=== PATIENT | female | born 1945 | race Caucasian/White ===

== ENCOUNTER → 2019-05-09 | Outpatient (CLI) | payer MEDICARE, OTHER ==
[2018-09-21 11:00] VITALS: BP 121/68
[~2019-05-09] MED LIST: ACET325T9 PO; ASCO10002 PO; ASPI325T11 PO; ATOR40TA59 PO; GARL100T PO; LORA0.5T96 PO; METO25TA4 PO; NAPR220T70 PO; NITR0.4T24 SL; PANA1CAP PO; Pantoprazole PO; RIVA10TA PO; TRAM-48 PO; VITA-8 PO; WARF10TA45 MC
--- NOTE | 2019-05-09 15:54 | RAD ---
MR#: [id number] Date of Study: 05/09/2019 Ordering Physician: JESUS MANUEL SLOER, Referring Physician: JESUS MANUEL SOLER, Tech: ZI Guerrero, RDNM, t APPROVED REPORT Patient Location: OUT-PATIENT Indications Claudication: VELOCITY AND DOPPLER WAVEFORM ANALYSIS RIGHT cm/secWaveformSeverity LEFT cm/secWaveform Severity pCFA 117.1MonophasicpCFA 190.9Monophasic Prof Fem Art. 85.3Prof Fem Art. 82.4 Fem Art Prox. 94.7MonophasicFem Art Prox. 109.2Monophasic Fem Art Mid. 91.6MonophasicFem Art Mid. 247.9Monophasic Fem Art Dist. 151.8MonophasicFem Art Dist. 70.9Monophasic Pop Art(Fossa) 70.5MonophasicPop Art(AK) 96.9Monophasic SUSTAINABLE SYSTEMS ANALYST Dist. 35.2MonophasicPTA Dist. 50.4Monophasic Per Art Dist.Per Art Dist.58.1Monophasic PAZ Dist. 39.3MonophasicATA Dist. 32.4Monophasic DPA 44MonophasicDPA 41Monophasic Findings Grayscale images of the bilateral lower extremity arterial vessels demonstrate mild diffuse intimal h yperplasia. Spectral waveforms and color Doppler on the right side are grossly within normal limits w ith minimally elevated velocities at the level of the distal superficial femoral artery. Overall sugg estive of less than 50% stenosis. Below the knee there are monophasic waveforms in the peroneal arter y appears to be occluded. Diminished flow velocities suggestive of diffuse disease. Grayscale of his of the left are similar and demonstrate moderate diffuse plaque. Elevated velocities at the level of the common femoral artery again suggestive of less than 50% stenosis. There is likel y a 50% or more stenosis involving the distal SFA. No focal high-grade stenosis identified otherwise. Critical Notification Critical Value: No <Conclusion> 1. Moderate diffuse disease bilaterally 2. Probable 50% or greater stenosis involving the mid left SFA. Probable occlusion of the right peron eal artery. Signed by : Jose Sanon, Electronically Approved : 05/09/2019 15:54:07
== END | disposition home or self-care (01) ==
LOC: US 14:19
PROVIDERS: ATTEND Internal Medicine Cardiovascular Disease
DX: I70.292 Other atherosclerosis of native arteries of extremities, left leg (principal)
CPT/HCPCS: 93925

== ENCOUNTER → 2019-05-21 | Outpatient (CLI) | payer MEDICARE ==
[2018-09-21 11:00] VITALS: BP 121/68
--- NOTE | 2019-05-21 11:02 | RAD ---
MR#: [id number] Date of Study: 05/21/2019 Ordering Physician: JESUS MANUEL SOLER, Referring Physician: JESUS MANUEL SOLER, Tech: ZI Guerrero, [facility], t APPROVED REPORT Bilateral Lower Extremity Venous Study for DVT Patient Location: OUT-PATIENT Indications Lower Extremity Pain: Lower Extremity Edema: CAD Findings The bilateral lower extremity deep veins were evaluated for thrombus with color Doppler, spectral and grayscale images. On the right the grayscale images of the common femoral, superficial femoral and popliteal veins do n ot demonstrate any evidence of thrombus and these veins appear to be compressible. The below-knee vei ns were not well visualized . On the left, the grayscale images of the common femoral, superficial femoral and popliteal veins do n ot demonstrate any evidence of thrombus and these veins appear to be compressible. The below-knee vei ns again were not well visualized but grossly appear to be compressible. Spectral imaging and color D oppler do not reveal any evidence of obstruction to flow with normal respirophasic variation above th e knee. The below-knee veins demonstrate spontaneous flow. Significant bilateral lower extremity edema. Critical Notification Critical Value: No <Conclusion> 1. Technically limited study. 2. No clear evidence of the DVT in the LLE. 3. RLE with no evidence of DVT, technically difficult study in the below knee evaluation Signed by : Jose Sanon, Electronically Approved : 05/21/2019 11:01:48
--- NOTE | 2019-05-21 11:07 | RAD ---
MR#: [id number] Date of Study: 05/21/2019 Ordering Physician: JESUS MANUEL SOLER, Referring Physician: JESUS MANUEL SOLER, Tech: ZI Guerrero, RDSD, T APPROVED REPORT Patient Location : OUT-PATIENT Indications Lower Extremity Pain : Lower Extremity Edema : Skin Changes CAD Findings Yee scale images of the bilateral saphenofemoral junctions are grossly unremarkable. The bilateral GSV/LSV are grossly without thrombus. The RGSV measures 6.5 mm and the left GSV measures 6.4 mm and both these veins do not reflux The bilateral lesser saphenous veins do not show any evidence of reflux. Critical Notification Critical Value: No <Conclusion> 1. Negative for reflux in the bilateral greater and lesser saphenous veins. Signed by : Jose Sanon, Electronically Approved : 05/21/2019 11:06:35
== END | disposition home or self-care (01) ==
LOC: US 10:11
PROVIDERS: ATTEND Internal Medicine Cardiovascular Disease
DX: M79.604 Pain in right leg (principal); M79.605 Pain in left leg; R60.0 Localized edema; I25.10 Atherosclerotic heart disease of native coronary artery without angina pectoris
CPT/HCPCS: 93970

== ENCOUNTER → 2020-06-04 | Outpatient (CLI) | payer MEDICARE ==
[2018-09-21 11:00] VITALS: BP 121/68
[~2020-06-04] MED LIST changes: +ASCO100019 PO; -ASCO10002 PO
--- NOTE | 2020-06-04 15:38 | CARD ---
MR#: [id number] Date of Study: 06/04/2020 Ordering Physician: JESUS MANUEL SOLER, Referring Physician: JESUS MANUEL SOLER, Tech: Ursula Valladares [facility] APPROVED REPORT EXAM: Two-dimensional and M-mode echocardiogram with Doppler and color Doppler. Other Information Quality : FairHR: 77bpm Rhythm : NSR INDICATION COPD RISK FACTORS Hypertension Obesity 2D DIMENSIONS RVDd2.8 (2.9-3.5cm)Left Atrium(2D)2.9 (1.6-4.0cm) IVSd1.1 (0.7-1.1cm)Aortic Root(2D)3.1 (2.0-3.7cm) LVDd3.7 (3.9-5.9cm)LVOT Diameter1.8 (1.8-2.4cm) PWd1.1 (0.7-1.1cm)LVDs2.1 (2.5-4.0cm) FS (%) 43.0 %SV43.5 ml LVEF(%)75.0 (>50%) Aortic Valve AoV Peak Manny.134.7cm/sAoV VTI29.2cm AO Peak GR.7.3mmHgLVOT Peak Manny.121.0cm/s AO Mean GR.3mmHgAVA (VMAX)2.40cm2 LEFT VENTRICLE The left ventricle is normal size. There is borderline concentric left ventricular hypertrophy. The l eft ventricular systolic function is normal. Estimated ejection fraction 55-60%. There is normal LV segmental wall motion. RIGHT VENTRICLE The right ventricle is normal size. There is normal right ventricular wall thickness. The right ventr icular systolic function is normal. ATRIA The left atrium size is normal. The right atrium size is normal. The interatrial septum is intact wit h no evidence for an atrial septal defect or patent foramen ovale as noted on 2-D or Doppler imaging. AORTIC VALVE The aortic valve is normal in structure and function. Doppler and Color Flow revealed no significant aortic regurgitation. There is no significant aortic valvular stenosis. MITRAL VALVE The mitral valve is normal in structure and function. There is no evidence of mitral valve prolapse. There is no mitral valve stenosis. Doppler and Color Flow revealed no mitral valve regurgitation note d. TRICUSPID VALVE The tricuspid valve is normal in structure and function. Doppler and Color Flow revealed no tricuspid valve regurgitation noted. There is no tricuspid valve stenosis. PULMONIC VALVE The pulmonary valve is normal in structure and function. Doppler and Color Flow revealed no pulmonic valvular regurgitation. GREAT VESSELS The aortic root is normal in size. The ascending aorta is normal in size. Due to poor image quality, the IVC could not be assessed. PERICARDIAL EFFUSION There is no evidence of significant pericardial effusion. Critical Notification Critical Value: No <Conclusion> The left ventricular systolic function is normal. Estimated ejection fraction 55-60%. There is normal LV segmental wall motion. There is no evidence of significant pericardial effusion. Signed by : Alvaro Ritchie, Electronically Approved : 06/04/2020 15:38:07
== END ==
LOC: ECHO 14:21
PROVIDERS: ATTEND Internal Medicine Cardiovascular Disease
DX: I51.7 Cardiomegaly (principal); I25.10 Atherosclerotic heart disease of native coronary artery without angina pectoris
CPT/HCPCS: 93306

== ENCOUNTER 2020-08-16 11:15 | Emergency (ER) | payer MEDICARE ==
[~2020-08-16] VITALS: Ht 172.7 cm; Wt 108.7 kg
[2020-08-16] MEDS ORDERED: IV NORMAL SALINE 1000ML BAG 1,000 ML IV SCH (11:30)
--- NOTE | 2020-08-16 11:37 | RAD ---
CT Head without contrast Indication: Reason: CODE STROKE<right sided deficit, expressive aphasia ED [phone] / Spl. Instr uctions: / History: Date of service:08/16/2020 11:24 AM. Comparison: CT head without contrast from 04/16/2018. Technique: Contiguous helical images are obtained from foramen magnum, to the vertex without IV contr ast . Findings: The ventricles and sulci are normal for the patient's age. No mass , midline shift , hemor rhage or acute infarct is present. Bone windows are normal without calvarial abnormality. The visual ized orbits, paranasal sinuses and mastoid air cells are clear . Impression: No acute intracranial process detected. PQRS Compliance Statement: One or more of the following individualized dose reduction techniques were utilized for this examinat ion: 1. Automated exposure control 2. Adjustment of the mA and/or kV according to patient size 3. Use of iterative reconstruction technique FOR INTERNAL CODING PURPOSES Critical result: Findings discussed with Anup, the nurse practitioner at 08/16/2020 11:33 AM. RESULT CODE: (C) Electronically signed by: Es Vivar MD (08/16/2020 11:35 AM) [facility]
[2020-08-16] MEDS ORDERED: IOHEXOL 300 MG/ML 100ML VIAL. IV ONE (11:45)
[2020-08-16] MEDS ORDERED: CONTRAST GIVEN. MC PRN (11:45)
[2020-08-16 11:54] LABS: BASO # 0.1 x10^3/uL (0.0-0.2); BASO % 1 % (0-3); EOS # 0.1 x10^3/uL (0.0-0.7); EOS % 1 % (0-3); HEMATOCRIT 35.1 % (36.0-47.0); HEMOGLOBIN 11.5 g/dL (12.0-15.5); LYMPH # 2.2 x10^3/uL (1.0-4.8); LYMPH % 23 % (24-48); MEAN CORPUSCULAR HEMOGLOBIN 26 pg (25-35); MEAN CORPUSCULAR HGB CONC 33 g/dL (31-37); MEAN CORPUSCULAR VOLUME 81 fL (79-100); MONO # 0.6 x10^3/uL (0.0-1.1); MONO % 6 % (0-9); NEUT # 6.7 x10^3/uL (1.8-7.7); NEUT % 70 % (31-73); PLATELET COUNT 195 x10^3/uL (140-400); RED BLOOD COUNT 4.35 x10^6/uL (3.50-5.40); RED CELL DISTRIBUTION WIDTH 17.4 % (11.5-14.5); WHITE BLOOD COUNT 9.6 x10^3/uL (4.0-11.0)
[2020-08-16] MEDS ORDERED: IV NORMAL SALINE 50ML 50 ML IV ONE (12:00)
[2020-08-16] MEDS ORDERED: ALTEPLASE 9 MG IV ONE (12:00)
[2020-08-16] MEDS ORDERED: ALTEPLASE 81 MG IV ONE (12:00)
[2020-08-16 12:04] LABS: PROTHROMBIN TIME PATIENT 13.8 SEC (11.7-14.0)
--- NOTE | 2020-08-16 12:05 | RAD ---
CT arteriogram the carotid arteries, CT arteriogram of the brain. HISTORY: Code stroke, right-sided deficits, expressive aphasia CT arteriogram of the carotid arteries was done using 75 mL Omnipaque 300 contrast. Three-dimensional images were reconstructed. There is respiratory motion artifact throughout the study which limits ev aluation. Upper lung ponce are clear. Thyroid is homogeneous. There is no adenopathy in the neck. Th ere is atherosclerotic change at the aortic arch. Possible narrowing of the origin of the left common carotid artery but the pattern may just be artifact. Left subclavian has mild plaque without severe stenosis. Innominate artery is patent. Origins of the vertebral arteries are poorly seen but there ar e normal size vessels. Both vertebral arteries supply flow to the basilar artery. Common carotid arteries are poorly seen due to motion artifact. There is mild calcified plaque the ri ght carotid bifurcation without definite stenosis but limited evaluation due to motion. There is calc ified plaque at the left carotid bifurcation. There is occlusion at the origin of the left internal c arotid artery. IMPRESSION: 1. Limited study due to motion artifact. 2. Occlusion of the left internal carotid artery. 3. Mild plaque right carotid bifurcation without definite stenosis. End impression CT arteriogram of the brain CT arteriogram of the brain was done following CT arteriogram of the carotid arteries. Basilar artery appears normal. There are prominent posterior communicating arteries bilaterally. Most of the flow t o the posterior cerebral is from the posterior communicating arteries although on the left side there is a good communication with the basilar artery is well. There is reconstitution of the intracranial internal carotid artery probably in part related to the p osterior communicating artery possibly also the ophthalmic artery. Anterior cerebral artery is patent . Difficult to determine if there is an anterior communicating artery. Both anterior cerebral is are patent. There is extensive motion artifact. There is occlusion of the M1 segment of the left middle c erebral. There is some flow in the left middle cerebral vessels possible collateralized flow. Right m iddle cerebral is patent. There is no pathologic enhancement. IMPRESSION: 1. Reconstitution of the intracranial internal carotid artery from collaterals. 2. 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 3. No other major intracranial vessel occlusion noted. FOR INTERNAL CODING PURPOSES Critical result: Findings discussed with ER physician at 08/16/2020 11:53 AM. RESULT CODE: (C) PQRS Compliance Statement: One or more of the following individualized dose reduction techniques were utilized for this examinat ion: 1. Automated exposure control 2. Adjustment of the mA and/or kV according to patient size 3. Use of iterative reconstruction technique Electronically signed by: Ander Caal MD (08/16/2020 12:03 PM) [facility]
[2020-08-16 12:06] LABS: CALCIUM 8.4 mg/dL (8.5-10.1); CREATININE 1.3 mg/dL (0.6-1.0); POTASSIUM 4.4 mmol/L (3.5-5.1)
[2020-08-16 12:09] VITALS: BP 133/69
--- NOTE | 2020-08-16 12:10 | RAD ---
AP chest. HISTORY: Weakness, altered mental status, code stroke AP view was taken of the chest. There is mild linear atelectasis in the right lung base. Lungs are fr ee of infiltrates. Heart is normal in size. There is no effusion. IMPRESSION: 1. Right base linear atelectasis. 2. No other infiltrates. Electronically signed by: Ander Caal MD (08/16/2020 12:08 PM) [facility]
[2020-08-16 12:12] LABS: ALBUMIN 3.3 g/dL (3.4-5.0); ALBUMIN/GLOBULIN RATIO 1.2 (1.0-1.7); MAGNESIUM 1.7 mg/dL (1.8-2.4); TOTAL BILIRUBIN 0.5 mg/dL (0.2-1.0); TOTAL PROTEIN 6.1 g/dL (6.4-8.2)
--- NOTE | 2020-08-16 12:23 | PHYS DOC ---
Past Medical History Past Medical History Unable to obtain secondary to acuity of condition Past Surgical History: Hip Replacement, Other Additional Past Surgical Histo: bunionectomy Past Surgical History Unable to obtain secondary to acuity of condition Smoking Status: Former Smoker Alcohol Use: None Drug Use: None Social History Unable to obtain secondary to acuity of condition General Adult EDM: Chief Complaint: NEURO SYMPTOMS/DEFICITS HPI: HPI: 74-year-old female presents via [facility] as a code stroke activation. Patient reportedly last known well as seen by daughter at 0 948. Daughter had gone to [facility] to get some food and returned at 1020 finding patient nonverbal with severe right side weakness. No known trauma. Patient without history of prior stroke. Family denies known use of blood thinners. EMS reports blood glucose 125. History of present illness limited secondary to acuity of condition. History obtained from EMS and patient's daughter. Review of Systems: Review of Systems: Review of systems limited secondary to acuity of condition Heart Score: C/O Chest Pain: N/A Current Medications: Current Medications Medications (Trade) Dose Ordered Sig/Forest Start Time Stop Time Status Last Admin Dose Admin Alteplase, Recombinant 81 ml @ 81 mls/hr 1X ONCE 08/16/20 12:00 08/16/20 12:59 Info (CONTRAST GIVEN -- Rx MONITORING) 1 each PRN DAILY PRN 08/16/20 11:45 08/18/20 11:44 Iohexol (Omnipaque 300 Mg/ml) 75 ml 1X ONCE 08/16/20 11:45 08/16/20 11:46 DC Sodium Chloride 50 ml @ 50 mls/hr 1X ONCE 08/16/20 12:00 08/16/20 12:59 Allergies: Allergies: Allergies Coded Allergies Type Severity Reaction Last Updated Verified No Known Drug Allergies 05/29/14 No Physical Exam: PE: Constitutional: Well developed, well nourished, nonverbal HENT: Normocephalic, atraumatic Eyes: Forced deviation to left, conjunctiva normal, no discharge Neck: Normal range of motion, no tenderness, supple Lungs & Thorax: No respiratory distress, equal chest rise and fall Cardiac: Tachycardia, bilateral radial pulses +2, bilateral pedal pulses +2 Abdomen: Soft, no tenderness, no guarding/rebound tenderness/distention Skin: Warm, dry, no erythema, no rash Extremities: No tenderness, ROM intact, no edema Neurologic: Alert, nonverbal, right upper and lower extremity flaccidity, decreased sensation on right limbs Psychologic: Limited, judgment abnormal EKG: EKG: @1132 Sinus tachycardia at 114bpm, NO ST elevation, QRS 88ms, QT/QTc 320/444ms, low voltage QRS Radiology/Procedures: Radiology/Procedures: PROCEDURE: CT CODE STROKE HEAD WO CT Head without contrast Indication: Reason: CODE STROKE<right sided deficit, expressive aphasia ED [phone] / [facility]. Instructions: / History: Date of service:08/16/2020 11:24 AM. Comparison: CT head without contrast from 04/16/2018. Technique: Contiguous helical images are obtained from foramen magnum, to the vertex without IV contrast . Findings: The ventricles and sulci are normal for the patient's age. No mass , midline shift , hemorrhage or acute infarct is present. Bone windows are normal without calvarial abnormality. The visualized orbits, paranasal sinuses and mastoid air cells are clear . Impression: No acute intracranial process detected. RS Compliance Statement: One or more of the following individualized dose reduction techniques were utilized for this examination: 1. Automated exposure control 2. Adjustment of the mA and/or kV according to patient size 3. Use of iterative reconstruction technique FOR INTERNAL CODING PURPOSES Critical result: Findings discussed with nAup, the nurse practitioner at 08/16/2020 11:33 AM. RESULT CODE: (C) Electronically signed by: Es Vivar MD (08/16/2020 11:35 AM) [facility] PROCEDURE: CTA HEAD/NECK - CODE STROKE CT arteriogram the carotid arteries, CT arteriogram of the brain. HISTORY: Code stroke, right-sided deficits, expressive aphasia CT arteriogram of the carotid arteries was done using 75 mL Omnipaque 300 contrast. Three-dimensional images were reconstructed. There is respiratory motion artifact throughout the study which limits evaluation. Upper lung ponce are clear. Thyroid is homogeneous. There is no adenopathy in the neck. There is atherosclerotic change at the aortic arch. Possible narrowing of the origin of the left common carotid artery but the pattern may just be artifact. Left subclavian has mild plaque without severe stenosis. Innominate artery is patent. Origins of the vertebral arteries are poorly seen but there are normal size vessels. Both vertebral arteries supply flow to the basilar artery. Common carotid arteries are poorly seen due to motion artifact. There is mild calcified plaque the right carotid bifurcation without definite stenosis but limited evaluation due to motion. There is calcified plaque at the left carotid bifurcation. There is occlusion at the origin of the left internal carotid artery. IMPRESSION: 1. Limited study due to motion artifact. 2. Occlusion of the left internal carotid artery. 3. Mild plaque right carotid bifurcation without definite stenosis. End impression CT arteriogram of the brain CT arteriogram of the brain was done following CT arteriogram of the carotid arteries. Basilar artery appears normal. There are prominent posterior communicating arteries bilaterally. Most of the flow to the posterior cerebral is from the posterior communicating arteries although on the left side there is a good communication with the basilar artery is well. There is reconstitution of the intracranial internal carotid artery probably in part related to the posterior communicating artery possibly also the ophthalmic artery. Anterior cerebral artery is patent. Difficult to determine if there is an anterior communicating artery. Both anterior cerebral is are patent. There is extensive motion artifact. There is occlusion of the M1 segment of the left middle cerebral. There is some flow in the left middle cerebral vessels possible collateralized flow. Right middle cerebral is patent. There is no pathologic enhancement. IMPRESSION: 1. Reconstitution of the intracranial internal carotid artery from collaterals. 2. 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 3. No other major intracranial vessel occlusion noted. FOR INTERNAL CODING PURPOSES Critical result: Findings discussed with ER physician at 08/16/2020 11:53 AM. RESULT CODE: (C) PQRS Compliance Statement: One or more of the following individualized dose reduction techniques were utilized for this examination: 1. Automated exposure control 2. Adjustment of the mA and/or kV according to patient size 3. Use of iterative reconstruction technique Electronically signed by: Ander Caal MD (08/16/2020 12:03 PM) [facility] PROCEDURE: PORTABLE CHEST 1V AP chest. HISTORY: Weakness, altered mental status, code stroke AP view was taken of the chest. There is mild linear atelectasis in the right lung base. Lungs are free of infiltrates. Heart is normal in size. There is no effusion. IMPRESSION: 1. Right base linear atelectasis. 2. No other infiltrates. Electronically signed by: Ander Caal MD (08/16/2020 12:08 PM) [facility] Course & Med Decision Making: Course & Med Decision Making Pertinent Labs and Imaging studies reviewed. (See chart for details) Patient presents via EMS with concern for code stroke. Patient last known well at 0948. Daughter reports coming home at 1020 finding patient with right-sided deficit and expressive aphasia. NIHSS greater than 19. Patient sent immediately to CT scanner with CT head w/o contrast without intracranial hemo rrhage. CTA head/neck also obtained at that time with findings of large vessel occlusion of left ICA and left MCA. Discussed risks vs benefits with patient's daughter with decision to start TPA. TPA started at 1214. Patient with need for neurointerventional evaluation and possible treatment. Utilized [facility] transfer line regarding patient's findings. CT imaging clouded. Discussed case with Dr. Caitlyn Diamond (transfer physician), Dr. Dela Cruz (neurology), and Dr. Smith (neurointervention). Patient sent emergently via EMS to [facility] emergency department for further evaluation and treatment. Discussed current findings and plan with patient's family, who acknowledge understanding and agreement. Robin Disclaimer: Robin Disclaimer: This electronic medical record was generated, in whole or in part, using a voice recognition dictation system. Departure Departure Impression: Primary Impression: Acute left ICA ischemic stroke Additional Impression: Acute ischemic left MCA stroke Disposition: 02 SHORT TERM HOSPITAL Condition: GUARDED Referrals: YAYO DALE (PCP) NIHSS Stroke Scale NIH Stroke Scale: NIH Stroke Scale Response (Comments) Value Level of Consciousness: 0 Alert/Responsive 0 LOC Questions: 2 Answers neither correct 2 LOC Commands: 0 Performs both tasks 0 Best Gaze: 2 Forced deviation 2 Motor - Left Arm 0 No drift 0 Motor - Right Arm 4 No movement 4 Motor - Left Leg 0 No drift 0 Motor: Right Leg 4 No movement 4 Sensory: 1 Mid to moderate loss 1 Best Language: 2 Severe aphasia 2 Dysathria: 2 Severe 2 Extinction and Inattention: 2 Extinction 2 Total 19 Critical Care Time Critical care time was 30 minutes which includes time at bedside, spent in discussion of patient's care with specialists and/or family members, with interpretation of laboratory and/or radiological studies and is exclusive of procedures. LISA AYON DO August 16, 2020 12:23
--- NOTE | 2020-08-16 13:02 | EKG ---
[facility] [address] [place] [address] Test Date: 2020-08-16 Test Time: 11:32:48 Pat Name: ULISES KIM Department: Room: Gender: F [employer] Operator: : 1945 Requested By: LISA AYON Order Number: [id number] Reading MD: Measurements Intervals [place] Rate: 114 P: 48 [place]: 164 QRS: 25 QRSD: 88 T: 90 QT: 320 QTc: 444 Interpretive Statements SINUS TACHYCARDIA ST & T ABNORMALITY, CONSIDER ANTEROLATERAL ISCHEMIA OR LEFT VENTRICULAR STRAIN ABNORMAL ECG RI6.02 No previous ECG available for comparison
[2020-08-16] MEDS ORDERED: IOHEXOL 300 MG/ML 100ML VIAL. ONE (17:29)
== END 2020-08-16 12:30 | disposition short-term general hospital (02) ==
LOC: ER 11:15
DX: I63.232 Cerebral infarction due to unspecified occlusion or stenosis of left carotid arteries (principal); I63.512 Cerebral infarction due to unspecified occlusion or stenosis of left middle cerebral artery; Z87.891 Personal history of nicotine dependence
CPT/HCPCS: 36415; 37195; 70450; 70496; 70498; 71045; 80053; 82140; 83605; 83735; 84484; 85025; 85610; 85730; 93005; 96360; 99291; J2997; J7030; Q9967